=== PATIENT | female | born 1970 | race Caucasian/White ===

== ENCOUNTER 2017-02-04 15:09 | Inpatient (IN) | payer OTHER ==
[2017-02-04] MEDS ORDERED: INSULIN SLIDING SCALE (NOVOLOG) 1 VIAL SQ SCH ×2 (16:30)
[2017-02-04] MEDS ORDERED: TUBERCULIN PPD 5 TU/0.1ML SYRINGE (IN PATIENT USE ONLY) ID ONE (16:56)
[2017-02-04] MEDS ORDERED: PROMETHAZINE HCL 25 MG/1 ML VIAL IVPUSH ONE ×2 (17:39→21:18)
[2017-02-04] MEDS ORDERED: BUTORPHANOL TARTRATE 1 MG/ML VIAL IVPB ONE (17:39)
[2017-02-04] MEDS ORDERED: ELECTROLYTE-148 SOLN 1,000 ML IV SCH ×2 (17:45→22:00)
[2017-02-04 18:14] VITALS: BMI 32.9
[2017-02-04 18:37] LABS: BASOPHIL 0.6 % (0-2.0); EOSINOPHIL 0.6 % (0-4.5); MCHC 33.5 g/dl (32.0-36.0); MEAN CELL VOLUME 86.7 fl (80-96); MEAN PLT VOLUME 8.6 fl (7.5-11.1); NEUTROPHILS 70.6 % (42.8-82.8); PLATELET COUNT 188 K/MM3 (134-434); RDW 13.8 % (11.6-15.6); WHITE BLOOD COUNT 12.7 K/mm3 (4.0-10.0)
[2017-02-04 18:41] LABS: INR 1.04 (0.82-1.09); PROTHROMBIN TIME (PATIENT) 11.4 SEC (9.98-11.88)
[2017-02-04 18:44] LABS: ACTIVATED PTT 26.7 SECONDS (26.9-34.4)
[2017-02-04 19:07] LABS: CALCIUM 8.3 mg/dL (8.5-10.1); COCKROFT - GAULT 157.7005; CREATININE 0.6 mg/dL (0.55-1.02)
[2017-02-04] MEDS ORDERED: INSULIN DETEMIR 100 UNITS/ML MDV SQ ONE (20:59)
[2017-02-04] MEDS ORDERED: DINOPROSTONE 10 MG VAGINAL SUPPOSITORY VG ONE (21:00)
--- NOTE | 2017-02-04 21:10 | HP ---
Past Medical History - Primary Care Physician PCP:: Monserrat Bullock - Admission Chief Complaint: Induction due to preexisting DM at 38 weeks for induction, Hx of gestation DM with previous pregnancies. Pt admitted due to uncontrollable DM with elevated HgbA1C History of Present Illness: 46 yo G & [id number] EDC 02/17/17 EGA 38.1 weeks admitted due to preexisting DM at 38 weeks for induction History Source: Patient Limitations to Obtaining History: No Limitations - Past Medical History ...: 7 ...Para: 3 ...Term: 3 ...: 0 ...Spon : 1 ...Induced : 2 ...Multiple Gestation: 0 ...LMP: 05/15/16 ... Weeks Gestation by Dates: 38.1 ...EDC by Dates: 02/19/17 ...EDC by Sono: 02/17/17 - Past Surgical History Hx Myomectomy: No Hx Transabdominal Cerclage: No Additional Surgical History: deviated septum 2013. hemorrhoid 2006 - Smoking History Smoking history: Former smoker Have you smoked in the past 12 months: No - Alcohol/Substance Use Hx Alcohol Use: No History of Substance Use: reports: None - Social History Usual Living Arrangement: Yes: With Spouse History of Recent Travel: No Home Medications - Allergies Allergies/Adverse Reactions: Allergies Allergy/AdvReac Type Severity Reaction Status Date / Time No Known Allergies Allergy Verified 02/02/17 18:19 - Home Medications Home Medications: Ambulatory Orders Insulin (Levemir) [Levemir Flexpen -] 30 units SQ HS 12/16/16 Insulin Sliding Scale [Novolog Vial Sliding Scale -] 0 units SQ TIDAC 12/16/16 Vit Calc,Iron,Folic [ Vitamins] 1 each PO DAILY 12/16/16 Review of Systems - Review of Systems Constitutional: reports: No Symptoms Eyes: reports: No Symptoms HENT: reports: No Symptoms Neck: reports: No Symptoms Cardiovascular: reports: No Symptoms Respiratory: reports: No Symptoms Gastrointestinal: reports: No Symptoms Genitourinary: reports: No Symptoms Breasts: reports: No Symptoms Reported Musculoskeletal: reports: No Symptoms Integumentary: reports: No Symptoms Neurological: reports: No Symptoms Endocrine: reports: No Symptoms Hematology/Lymphatic: reports: No Symptoms Psychiatric: reports: No Symptoms Physical Exam - Maternity Vital Signs: Vital Signs Temperature 98.5 F 06/13/17 20:00 Pulse Rate 95 H 02/04/17 20:00 Respiratory Rate 20 02/04/17 20:00 Blood Pressure 115/56 02/04/17 20:00 O2 Sat by Pulse Oximetry (%) Constitutional: Yes: Well Nourished, No Distress Neck: Yes: WNL Cardiovascular: Yes: WNL, Regular Rate and Rhythm Lungs: Clear to auscultation Breast(s): Yes: WNL - Abdominal Exam/OB Fundal Height: 39 Number of Fetuses: Single Presentation: Vertex Contractions: No Monitor Mode: External Category: I Accelerations: Non-Uniform Decelerations: None - Vaginal Exam/OB Vaginal Bleediing: No Speculum Exam: No Dilatation (cm): 2-3 Effacement (%): 50 Amniotic Membrane Status: Intact Presentation: Vertex/Position Station: -2 (Cervidil placed) - Labs Lab Results: CBC, BMP 02/04/17 17:30 02/04/17 17:30 Hemorrhage Risk Assessment - Risk Factors Medium Risk Factors: Yes: EFW greater than 4000g Risk Score: 1 Risk Level: Medium Risk Problem List - Problems (1) Preexisting diabetes complicating in third trimester, antepartum Assessment/Plan: Gladys preexisting DM IUP at 38 weeks Code(s): O24.313 - UNSP PRE-EXISTING DIABETES IN , THIRD TRIMESTER (2) Elective induction of labor planned Code(s): ISX0376 - Assessment/Plan IUP at 38.1 week AMA Cat 1 week preexisting DM induction with cervidil Plan cervidil diabetes management
[2017-02-04] MEDS ORDERED: BUTORPHANOL TARTRATE 1 MG/ML VIAL IVPUSH ONE (21:19)
[2017-02-04] MEDS ORDERED: AMPICILLIN - 2 GM in SODIUM CHLORIDE 100 ML IVPB ONE (21:19)
[2017-02-05] MEDS ORDERED: CITRIC ACID/SODIUM CITRATE 30 ML UNIT-DOSE CUP PO ONE (00:10)
--- NOTE | 2017-02-05 00:11 | PN ---
Ante-Partal Exam - Subjective Subjective: Called to evaluate due to deep variable decels with cervidil. Cervidil removed No rom no bleeding Vital Signs: Vital Signs Temperature 98.3 F 02/04/17 22:00 Pulse Rate 75 02/04/17 22:00 Respiratory Rate 20 02/04/17 22:00 Blood Pressure 102/51 02/04/17 22:00 O2 Sat by Pulse Oximetry (%) Bleeding: No Headache: No Visual changes: No Right upper quadrant pain: No - Contractions Contractions: Yes Regularity: Irregular Intensity: Mild/Mod Monitor Mode: External - Exam during Labor Variability: Moderate Heart Rate Location: [facility] Category: II Monitor Decelerations: Variable (deep to 60s) Exam: Vaginal Presentation: Vertex Station: -2 - Intrapartum Hemorrhage Risk Risk Score: 1 Risk Level: Medium Risk - Assessment/Plan Assessment/Plan: intolerance to Labor Cat 2 Deep variables preexisting DM Plan Primary CS notify peds notify anesthesia
[2017-02-05] MEDS ORDERED: ONDANSETRON 4 MG/2 ML VIAL IVPUSH PRN (00:15)
[2017-02-05] MEDS ORDERED: IBUPROFEN 800 MG/8 ML IJ IVPB PRN (00:15)
[2017-02-05 01:01] LABS: ARTERIAL BLOOD GAS HCO3 26.1 meq/L (22-26)
[2017-02-05 01:03] LABS: ARTERIAL BLOOD GAS pH 7.21 (7.35-7.45)
[2017-02-05 01:04] LABS: ARTERIAL BLOOD GAS PO2 16.7 mmHg (80-100)
[2017-02-05 01:06] LABS: VENOUS PH 7.3 (7.32-7.42)
[2017-02-05] MEDS ORDERED: oxyCODONE HCL 5 MG TABLET PO PRN (01:10)
[2017-02-05] MEDS ORDERED: METHYLERGONOVINE MALEATE 0.2 MG/1 ML AMP IM PRN (01:10)
[2017-02-05] MEDS ORDERED: OXYTOCIN 20 UNITS in 0.9% NS 1,000 ML IV SCH (01:15)
[2017-02-05] MEDS ORDERED: D5W-LR W/ 20 UNITS OXYTOCIN 1,000 ML IV SCH (05:00)
[2017-02-05] MEDS: INSULIN SLIDING SCALE (NOVOLOG) 1 VIAL SQ SCH ×3 (07:32→17:43)
--- NOTE | 2017-02-05 10:20 | OP ---
Operative Note - Note: Operative Date: 02/05/17 Pre-Operative Diagnosis: Preexisiting Diabetes. Nonreassuring Tracing. Advanced maternal Age Operation: Primary Low Transverse Ceserean Section Findings: Live male Post-Operative Diagnosis: Same as Pre-op Surgeon: Monserrat Bullock Molder Pipe Covering: Baltazar Nelson Anesthesia: Spinal Estimated Blood Loss (mls): 600 Operative Report Dictated: Yes
[2017-02-05] MEDS: SIMETHICONE 80 MG TAB.CHEW (FP) PO PRN ×3 (10:47→22:08)
[2017-02-05] MEDS: ACETAMINOPHEN 325 MG TABLET (FP) PO PRN ×3 (10:47→22:10)
--- NOTE | 2017-02-05 13:52 | OP ---
DATE OF OPERATION: 02/05/2017 PREOPERATIVE DIAGNOSIS: Preexisting diabetes uncontrolled, intrauterine at 38 weeks, nonreassuring tracing,AMA POSTOPERATIVE DIAGNOSIS: Live male infant. OPERATION: Primary low transverse section. SURGEON: Monserrat Bullock MD ACCELERATOR SYSTEMS DIRECTOR: Baltazar Nelson MD ANESTHESIA: Spinal. ANESTHESIOLOGIST: Bull Villalobos MD DESCRIPTION OF PROCEDURE: The patient was taken to the operating room, placed in the dorsal lithotomy position, prepped and draped in the usual sterile fashion. A time-out was performed in accordance with hospital regulation. A Pfannenstiel skin incision was made with the scalpel. Cautery was then used to go through the layers of the abdominal wall to the level of the fascia. The fascia was cut in the midline and cautery was then used to open the fascia in a smiling fashion. Meg was then used to bluntly and sharply dissect the rectus muscle and fascia. The muscle was splint in the midline. The peritoneal cavity was then entered carried down. A bladder retractor was then placed. The vesicouterine reflection was then entered. A scalpel was then used to make a low transverse uterine incision. The incision was carried upward using bandage scissors. A live male infant was delivered in OT position. Nose and mouth suction was performed. The shoulders were delivered without difficulty. The cord was clamped and cut. Cord pH was obtained. Cord blood sampling was done. The infant was handed to the cell attendant helper. The placenta was manually extracted from the uterus. The uterus was exteriorized and cleaned with clean lap pads. The uterine incision was then closed using 0 Biosyn suture, the first layer continuous interlocking and the second layer imbricating the first layer. Hemostasis was achieved. The tube and ovaries were noted to be normal. The uterus was interiorized. Abdominal sweep done. The peritoneal cavity and abdominal cavity were cleaned with clean lap pads. The peritoneum was then closed using 0 Biosyn suture in a continuous stitch. The muscle was approximated in the midline using a [id number] 0 Vicryl suture. The fascia was then closed using 0 Vicryl suture in 2 parts. The subcutaneous was then approximated using 0 Biosyn. The skin was then closed using 3-0 Vicryl in subcuticular fashion. The wound was washed and dressed. Steri-Strips were placed. The patient tolerated the procedure well. Estimated blood loss was 600 mL. Shayne [id number] MTDD
[2017-02-05] MEDS: IBUPROFEN 600 MG TABLET (FP) PO PRN ×2 (16:26→22:08)
--- NOTE | 2017-02-05 18:17 | CONSULT ---
Consult Consult Specialty:: Endocrinology Referred by:: Dr Bullock Reason for Consultation:: management of DM - History of Present Illness Chief Complaint: Fluctuating blood sugar History of Present Illness: This is a 46 y/o f with h/o DM, s/p c section who is referred for management of blood sugar. Pt has had fluctuating blood sugar during the . Pt has been non compliant with treatment and follow up. Last seen in the office on 01/03 when her blood sugars were fluctuating between 120 to 180. Didn't come for f /u after that. Says she was busy with work and that her blood sugars were good at home. Pt currently in chair eating dinner. Denies any complaints.Chart reviewed. - History Source History Provided By: Patient, Medical Record Limitations to Obtaining History: No Limitations - Past Medical History Endocrine: Yes: Diabetes Mellitus - Past Surgical History Additional Surgical History: deviated septum 2013. hemorrhoid 2006 - Alcohol/Substance Use Hx Alcohol Use: No History of Substance Use: reports: None - Smoking History Smoking history: Former smoker Have you smoked in the past 12 months: No - Social History History of Recent Travel: No Home Medications - Allergies Allergies/Adverse Reactions: Allergies Allergy/AdvReac Type Severity Reaction Status Date / Time No Known Allergies Allergy Verified 02/02/17 18:19 - Home Medications Home Medications: Ambulatory Orders Insulin (Levemir) [Levemir Flexpen -] 30 units SQ HS 12/16/16 Insulin Sliding Scale [Novolog Vial Sliding Scale -] 0 units SQ TIDAC 12/16/16 Vit Calc,Iron,Folic [ Vitamins] 1 each PO DAILY 12/16/16 Family Disease History - Family Disease History Family Disease History: Diabetes: Father Review of Systems - Review of Systems Constitutional: reports: No Symptoms Eyes: reports: No Symptoms HENT: reports: No Symptoms Neck: reports: No Symptoms Cardiovascular: reports: No Symptoms Respiratory: reports: No Symptoms Gastrointestinal: reports: Other ("sore" at surgical site) Genitourinary: reports: No Symptoms Musculoskeletal: reports: No Symptoms Neurological: reports: No Symptoms Endocrine: reports: No Symptoms Physical Exam Vital Signs: Vital Signs Temperature 98.6 F 02/05/17 17:00 Pulse Rate 79 02/05/17 17:00 Respiratory Rate 20 02/05/17 18:00 Blood Pressure 120/73 02/05/17 17:00 O2 Sat by Pulse Oximetry (%) 100 02/05/17 02:20 Constitutional: Yes: No Distress, Calm Eyes: Yes: Conjunctiva Clear, EOM Intact HENT: Yes: Atraumatic, Normocephalic Neck: Yes: Supple, Trachea Midline Cardiovascular: Yes: Regular Rate and Rhythm Respiratory: Yes: Regular, CTA Bilaterally Gastrointestinal: Yes: Normal Bowel Sounds, Soft Musculoskeletal: Yes: WNL Extremities: Yes: WNL Edema: No Labs: CBC, BMP 02/04/17 17:30 02/04/17 17:30 Assessment/Plan AP; S/P C section DM: BGM Q ACHS Novolog SS coverage 1800 KCal ADA diet Will f/u
[2017-02-06] MEDS ORDERED: BISACODYL 10 MG SUPP.RECT RC PRN (01:10)
[2017-02-06] MEDS: SIMETHICONE 80 MG TAB.CHEW (FP) PO PRN ×3 (06:29→21:01)
[2017-02-06] MEDS: oxyCODONE HCL 5 MG TABLET PO PRN ×3 (06:31→21:01)
[2017-02-06] MEDS: IBUPROFEN 600 MG TABLET (FP) PO PRN ×2 (06:32→13:38)
[2017-02-06] MEDS: INSULIN SLIDING SCALE (NOVOLOG) 1 VIAL SQ SCH ×3 (06:35→16:49)
[2017-02-06 08:28] LABS: BASOPHIL 0.5 % (0-2.0); EOSINOPHIL 0.9 % (0-4.5); MCH 29.8 pg (25.7-33.7); MEAN CELL VOLUME 87.8 fl (80-96); MEAN PLT VOLUME 8.4 fl (7.5-11.1); NEUTROPHILS 75.5 % (42.8-82.8); PLATELET COUNT 157 K/MM3 (134-434); RDW 14.2 % (11.6-15.6); WHITE BLOOD COUNT 12.9 K/mm3 (4.0-10.0)
--- NOTE | 2017-02-06 09:03 | PN ---
Progress Note (short form) - Note Progress Note: C/o pain at surgical site BGM stable No hypos Vital Signs Period Temp Pulse Resp BP Sys/Givens Pulse Ox Last 24 Hr 98.6 F-99.4 F 68-79 18-20 117-127/72-87 PE: AOx3 Neck: Supple, No JVd HEENT: PERRL, EOMI Lungs: CTA CVS: S1S2 Abd: Benign EXt: No edema Neuro: No focal deficit CMP Sodium 138 mmol/L (136-145) 02/04/17 17:30 Potassium 4.1 mmol/L (3.5-5.1) 02/04/17 17:30 Chloride 105 mmol/L (98-107) 02/04/17 17:30 Carbon Dioxide 20 mmol/L (21-32) L 02/04/17 17:30 Anion Gap 13 (8-16) 02/04/17 17:30 BUN 8 mg/dL (7-18) 02/04/17 17:30 Creatinine 0.6 mg/dL (0.55-1.02) 02/04/17 17:30 POC Glucometer 87 UNITS (()) 02/06/17 06:22 Random Glucose 139 mg/dL (74-106) H 02/04/17 17:30 Calcium 8.3 mg/dL (8.5-10.1) L 02/04/17 17:30 Current Medications Generic Name Dose Route Start Last Admin Trade Name Freq PRN Reason Stop Dose Admin Acetaminophen 650 mg 02/05/17 01:10 02/05/17 22:10 Tylenol - PO 650 mg Q4H PRN Administration FEVER OR PAIN Bisacodyl 10 mg 02/06/17 01:10 Dulcolax Suppository - RC PRN PRN CONSTIPATION Diphenhydramine HCl 25 mg 02/05/17 00:15 Benadryl Injection - IVPUSH Q4H PRN itching Ibuprofen 600 mg 02/05/17 01:10 02/06/17 06:32 Motrin - PO 600 mg Q4H PRN Administration PAIN Insulin Aspart 1 vial 02/04/17 20:09 02/06/17 06:35 Novolog Vial Sliding Scale - SQ Not Given TIDAC AURE Protocol Methylergonovine Maleate 0.2 mg 02/05/17 01:10 Methergine Injection - IM Q4H PRN Excessive Bleeding (L&D) Oxycodone HCl 5 mg 02/05/17 01:10 02/06/17 06:31 Roxicodone - PO 5 mg Q4H PRN Administration PAIN LEVEL 1-5 Oxycodone HCl 10 mg 02/05/17 01:10 Roxicodone - PO Q4H PRN PAIN LEVEL 6-10 Multivit/Folic Acid/Iron 1 tab 02/07/17 10:00 Vitamins (Sjr) - PO DAILY AURE Simethicone 80 mg 02/05/17 01:10 02/06/17 06:29 Mylicon - PO 80 mg Q4H PRN Administration GAS AP; DM S/P C section Diet discussed again: No sugary drinks including fruit juices and soda BGM TID AC Novolog SS coverage May be able to stay off antidiabetic meds with diet and exercise. Will f/u
[2017-02-06] MEDS: PRENATAL VITAMINS W/ FOLIC ACID TABLET (FP) PO SCH (09:30)
--- NOTE | 2017-02-06 09:33 | PN ---
Post Progress Note - Subjective Subjective: Pt with some incisional pain otherwise feeling well. Ambulating, voiding, tolerating diet. VB minimal. BGs stable - endocrine following. Type of Delivery: Primary C/S Vital Signs: Vital Signs Temperature 98.6 F 02/05/17 22:00 Pulse Rate 69 02/05/17 22:00 Respiratory Rate 18 02/05/17 22:00 Blood Pressure 124/72 02/05/17 22:00 O2 Sat by Pulse Oximetry (%) 100 02/05/17 02:20 Uterus: Yes: Fundus Firm, Fundus below umbilicus Incision: Yes: Sutures intact Abdomen/GI: Yes: Abdomen soft, Tender, Tolerating PO. No: Abdominal Distention Lochia: Yes: Rubra Lochia, amount: Small Extremities: Yes: Calves non-tender. No: Edema Perineum: Yes: Intact Activity: Ambulating - Labs Labs: CBC WBC 12.9 K/mm3 (4.0-10.0) H 02/06/17 07:45 RBC 3.75 M/mm3 (3.60-5.2) 02/06/17 07:45 Hgb 11.2 GM/dL (10.7-15.3) 02/06/17 07:45 Hct 32.9 % (32.4-45.2) 02/06/17 07:45 MCV 87.8 fl (80-96) 02/06/17 07:45 MCHC 34.0 g/dl (32.0-36.0) 02/06/17 07:45 RDW 14.2 % (11.6-15.6) 02/06/17 07:45 Plt Count 157 K/MM3 (134-434) 02/06/17 07:45 MPV 8.4 fl (7.5-11.1) 02/06/17 07:45 Neutrophils % 75.5 % (42.8-82.8) 02/06/17 07:45 Lymphocytes % 15.1 % (8-40) D 02/06/17 07:45 Monocytes % 8.0 % (3.8-10.2) 02/06/17 07:45 Eosinophils % 0.9 % (0-4.5) 02/06/17 07:45 Basophils % 0.5 % (0-2.0) 02/06/17 07:45 Assessment/Plan 46 y/o POD#1 s/p primary delivery, also wtih DM - AFVSS - DM - BGs stable with novolog SSI, appreciate endorine input, continue diabetic diet - PO pain meds - ambulation - routine care
[2017-02-06] MEDS: SENNOSIDES 8.6MG TABLET (FP) PO SCH ×2 (09:44→21:01)
--- NOTE | 2017-02-06 10:05 | PN ---
Progress Note (short form) - Note Progress Note: Post op day#1.S/P C section under spinal anesthesia with duramorph uneventful.Patient stable and c/o some pain for which she is on PO medication.No any anesthesia related problem.Patient DC from the anesthesia care.
[2017-02-06] MEDS: ACETAMINOPHEN 325 MG TABLET (FP) PO PRN (21:02)
[2017-02-07] MEDS: IBUPROFEN 600 MG TABLET (FP) PO PRN ×2 (00:17→11:11)
[2017-02-07] MEDS: oxyCODONE HCL 5 MG TABLET PO PRN (06:47)
[2017-02-07] MEDS: SIMETHICONE 80 MG TAB.CHEW (FP) PO PRN ×2 (06:47→15:40)
[2017-02-07] MEDS: ACETAMINOPHEN 325 MG TABLET (FP) PO PRN (06:47)
[2017-02-07] MEDS: INSULIN SLIDING SCALE (NOVOLOG) 1 VIAL SQ SCH ×3 (07:41→16:24)
[2017-02-07] MEDS: SENNOSIDES 8.6MG TABLET (FP) PO SCH ×2 (09:33→22:11)
[2017-02-07] MEDS: PRENATAL VITAMINS W/ FOLIC ACID TABLET (FP) PO SCH (09:34)
[2017-02-07] MEDS ORDERED: PRENATAL VITAMINS W/ FOLIC ACID TABLET (FP) PO SCH (10:00)
--- NOTE | 2017-02-07 10:01 | PN ---
Post Progress Note - Subjective Subjective: Pt doing well post . Pain control better today, ambulating, voiding, tolerating diabetic diet. BGs overall well controlled. Lochia minimal. No other issues/concerns. Denies GALVAN/RUQ pain/F/C/N/V/CP/SOB. Type of Delivery: Primary C/S Vital Signs: Vital Signs Temperature 98.1 F 02/07/17 08:15 Pulse Rate 69 02/07/17 08:15 Respiratory Rate 20 02/07/17 08:15 Blood Pressure 126/82 02/07/17 08:15 O2 Sat by Pulse Oximetry (%) 100 02/05/17 02:20 Uterus: Yes: Fundus Firm Incision: Yes: Sutures intact Abdomen/GI: Yes: Abdomen soft, Tender (appropriate post surgical tenderness). No: Abdominal Distention, Passing flatus Lochia, amount: Small Extremities: Yes: Calves non-tender. No: Edema Perineum: Yes: Intact Activity: Ambulating - Labs Labs: CBC WBC 12.9 K/mm3 (4.0-10.0) H 02/06/17 07:45 RBC 3.75 M/mm3 (3.60-5.2) 02/06/17 07:45 Hgb 11.2 GM/dL (10.7-15.3) 02/06/17 07:45 Hct 32.9 % (32.4-45.2) 02/06/17 07:45 MCV 87.8 fl (80-96) 02/06/17 07:45 MCHC 34.0 g/dl (32.0-36.0) 02/06/17 07:45 RDW 14.2 % (11.6-15.6) 02/06/17 07:45 Plt Count 157 K/MM3 (134-434) 02/06/17 07:45 MPV 8.4 fl (7.5-11.1) 02/06/17 07:45 Neutrophils % 75.5 % (42.8-82.8) 02/06/17 07:45 Lymphocytes % 15.1 % (8-40) D 02/06/17 07:45 Monocytes % 8.0 % (3.8-10.2) 02/06/17 07:45 Eosinophils % 0.9 % (0-4.5) 02/06/17 07:45 Basophils % 0.5 % (0-2.0) 02/06/17 07:45 Assessment/Plan 46 y/o POD#1 s/p primary delivery, also with DM - AFVSS - DM - BGs stable with novolog SSI, appreciate endorine input, continue diabetic diet and follow with endocrine upon discharge - PO pain meds - ambulation - routine care - if mom/baby stable, for discharge on 02/08 or 02/09
--- NOTE | 2017-02-07 14:36 | PATH ---
Surgical Pathology Report Patient Name: EMILY GREENE [facility]. Rec. #: [id number] /Age/Gender: 1970 (Age: 46) / F Account: [id number] Location: [facility] OBS/BUDGET REPORT CLERK Taken: 02/05/2017 Received: 02/05/2017 Reported: 02/07/2017 Physicians: Monserrat Bullock M.D. Specimen(s) Received PLACENTA Clinical History History of one spontaneous , 2 induced abortions, insulin-dependent diabetes Final Diagnosis PLACENTA, DELIVERY: FOCALLY DISRUPTED THIRD TRIMESTER PLACENTA WITH THREE VESSEL UMBILICAL CORD AND MECONIUM HISTIOCYTOSIS OF PLACENTAL MEMBRANES. Electronically Signed Anurag Santoyo M.D. Gross Description The specimen is received fresh labeled placenta and is a 460 gram, 17.0 x 14.0 x 3.0 cm. placenta with attached membranes and umbilical cord. The attached membranes are torres green, meconium stained, translucent with focal opacities and insert marginally. The umbilical cord measures 17 cm. in length and averages 1 cm. in diameter. The cord inserts eccentrically, 4 cm. to the nearest margin. No true knots or strictures are identified. Cut surface of the umbilical cord reveals 3 vessels. The surface is auguste green, meconium stained with minimal fibrin deposition and appropriate caliber vessels. The maternal surface is red-brown with focal defects. Sectioning reveals red-brown, spongy parenchyma. No lesions are identified. Debarker Operator sections are submitted in three cassettes as follows: 1- membrane rolls and umbilical cord; 2-3- full thickness sections of placenta. 02/06/[address] [facility]02/06/2017
[2017-02-07] MEDS: HYDROmorphone HCL 2 MG TABLET PO PRN ×2 (15:40→22:11)
[2017-02-08] MEDS: HYDROmorphone HCL 2 MG TABLET PO PRN (04:01)
[2017-02-08] MEDS: SIMETHICONE 80 MG TAB.CHEW (FP) PO PRN ×3 (04:02→21:46)
[2017-02-08] MEDS: IBUPROFEN 600 MG TABLET (FP) PO PRN ×3 (04:02→21:46)
[2017-02-08] MEDS: INSULIN SLIDING SCALE (NOVOLOG) 1 VIAL SQ SCH ×3 (06:31→16:32)
--- NOTE | 2017-02-08 07:45 | PN ---
Post Progress Note - Subjective Subjective: 46 yo Para 4 status post primary , seen and evaluated. She c/o incision pain. Type of Delivery: Primary C/S Vital Signs: Vital Signs Temperature 98.6 F 02/07/17 22:00 Pulse Rate 73 02/07/17 22:00 Respiratory Rate 20 02/07/17 22:00 Blood Pressure 132/73 02/07/17 22:00 O2 Sat by Pulse Oximetry (%) 100 02/05/17 02:20 Breast Exam: Yes: Soft Uterus: Yes: Fundus Firm Incision: Yes: Dressing dry and intact Abdomen/GI: Yes: Abdomen soft, Tolerating PO Lochia: Yes: Rubra Lochia, amount: Small Extremities: Yes: Calves non-tender Perineum: Yes: Intact Activity: Ambulating - Labs Labs: CBC WBC 12.9 K/mm3 (4.0-10.0) H 02/06/17 07:45 RBC 3.75 M/mm3 (3.60-5.2) 02/06/17 07:45 Hgb 11.2 GM/dL (10.7-15.3) 02/06/17 07:45 Hct 32.9 % (32.4-45.2) 02/06/17 07:45 MCV 87.8 fl (80-96) 02/06/17 07:45 MCHC 34.0 g/dl (32.0-36.0) 02/06/17 07:45 RDW 14.2 % (11.6-15.6) 02/06/17 07:45 Plt Count 157 K/MM3 (134-434) 02/06/17 07:45 MPV 8.4 fl (7.5-11.1) 02/06/17 07:45 Neutrophils % 75.5 % (42.8-82.8) 02/06/17 07:45 Lymphocytes % 15.1 % (8-40) D 02/06/17 07:45 Monocytes % 8.0 % (3.8-10.2) 02/06/17 07:45 Eosinophils % 0.9 % (0-4.5) 02/06/17 07:45 Basophils % 0.5 % (0-2.0) 02/06/17 07:45 Assessment/Plan Status post primary Stable Ambulation Analgesia PRN pain Continue routine Post op care
[2017-02-08 08:32] LABS: BASOPHIL 0.5 % (0-2.0); EOSINOPHIL 1.8 % (0-4.5); MCH 30.3 pg (25.7-33.7); MCHC 34.5 g/dl (32.0-36.0); MEAN CELL VOLUME 87.9 fl (80-96); MEAN PLT VOLUME 8.6 fl (7.5-11.1); NEUTROPHILS 70.3 % (42.8-82.8); PLATELET COUNT 190 K/MM3 (134-434); WHITE BLOOD COUNT 10.9 K/mm3 (4.0-10.0)
[2017-02-08] MEDS ORDERED: HYDROmorphone HCL 2 MG TABLET ONE ×2 (10:00→21:44)
[2017-02-08] MEDS: PRENATAL VITAMINS W/ FOLIC ACID TABLET (FP) PO SCH (10:03)
[2017-02-08] MEDS: SENNOSIDES 8.6MG TABLET (FP) PO SCH ×2 (10:04→21:46)
--- NOTE | 2017-02-08 12:15 | PN ---
Progress Note (short form) - Note Progress Note: C/o pain at surgical site BGM fluctuating No hypos Vital Signs Period Temp Pulse Resp BP Sys/Givens Pulse Ox Last 24 Hr 97.7 F-98.6 F 73-73 20-20 124-132/67-73 PE: AOx3 Neck: Supple, No JVd HEENT: PERRL, EOMI Lungs: CTA CVS: S1S2 Abd: Benign EXt: + edema Neuro: No focal deficit CMP Sodium 138 mmol/L (136-145) 02/04/17 17:30 Potassium 4.1 mmol/L (3.5-5.1) 02/04/17 17:30 Chloride 105 mmol/L (98-107) 02/04/17 17:30 Carbon Dioxide 20 mmol/L (21-32) L 02/04/17 17:30 Anion Gap 13 (8-16) 02/04/17 17:30 BUN 8 mg/dL (7-18) 02/04/17 17:30 Creatinine 0.6 mg/dL (0.55-1.02) 02/04/17 17:30 Random Glucose 139 mg/dL (74-106) H 02/04/17 17:30 POC Glucometer 173 UNITS (()) 02/08/17 10:57 Hemoglobin A1c % 8.0 % (4.8-6.0) H 02/06/17 07:45 Calcium 8.3 mg/dL (8.5-10.1) L 02/04/17 17:30 Current Medications Generic Name Dose Route Start Last Admin Trade Name Freq PRN Reason Stop Dose Admin Acetaminophen 650 mg 02/05/17 01:10 02/07/17 06:47 Tylenol - PO 650 mg Q4H PRN Administration FEVER OR PAIN Bisacodyl 10 mg 02/06/17 01:10 Dulcolax Suppository - RC PRN PRN CONSTIPATION Diphenhydramine HCl 25 mg 02/05/17 00:15 Benadryl Injection - IVPUSH Q4H PRN itching Hydromorphone HCl 2 mg 02/07/17 12:20 02/08/17 04:01 Dilaudid - PO 2 mg Q4H PRN Administration PAIN Hydromorphone HCl 4 mg 02/07/17 12:20 02/08/17 10:04 Dilaudid - PO 4 mg Q4H PRN Administration PAIN LEVEL 6-10 Ibuprofen 600 mg 02/05/17 01:10 02/08/17 10:04 Motrin - PO 600 mg Q4H PRN Administration PAIN Insulin Aspart 1 vial 02/07/17 09:58 02/08/17 11:55 Novolog Vial Sliding Scale - SQ 2 units TIDAC AURE Administration Protocol Methylergonovine Maleate 0.2 mg 02/05/17 01:10 Methergine Injection - IM Q4H PRN Excessive Bleeding (L&D) Multivit/Folic Acid/Iron 1 tab 02/06/17 10:00 02/08/17 10:03 Vitamins (Sjr) - PO 1 tab DAILY AURE Administration Senna 1 tab 02/06/17 10:00 02/08/17 10:04 Senna - PO 1 tab BID AURE Administration Simethicone 80 mg 02/05/17 01:10 02/08/17 10:04 Mylicon - PO 80 mg Q4H PRN Administration GAS AP; DM: A1c 8.0 S/P C section Diet discussed again: Discussed need to stop taking sugary drinks including fruit juices and soda. BGM TID AC Novolog SS coverage May be able to stay off antidiabetic meds with diet and exercise if she is compliant with it. Will f/u
[2017-02-09] MEDS: INSULIN SLIDING SCALE (NOVOLOG) 1 VIAL SQ SCH ×2 (06:29→11:27)
[2017-02-09 08:17] VITALS: BP 114/68; PULSE 67; TEMP 97.2
[2017-02-09] MEDS: PRENATAL VITAMINS W/ FOLIC ACID TABLET (FP) PO SCH ×2 (08:46→09:49)
[2017-02-09] MEDS: SIMETHICONE 80 MG TAB.CHEW (FP) PO PRN (08:47)
[2017-02-09] MEDS: ACETAMINOPHEN 325 MG TABLET (FP) PO PRN (08:47)
[2017-02-09] MEDS: IBUPROFEN 600 MG TABLET (FP) PO PRN (08:47)
[2017-02-09] MEDS: SENNOSIDES 8.6MG TABLET (FP) PO SCH ×2 (08:47→09:49)
--- NOTE | 2017-02-12 03:06 | DS ---
Physical Exam-BRANCH EMPLOYMENT COORDINATOR Vital Signs: Vital Signs Temperature 97.2 F L 02/09/17 08:16 Pulse Rate 67 02/09/17 08:16 Respiratory Rate 18 02/09/17 08:16 Blood Pressure 114/68 02/09/17 08:16 O2 Sat by Pulse Oximetry (%) 100 02/05/17 02:20 Constitutional: Yes: Well Nourished, No Distress Neck: Yes: WNL Cardiovascular: Yes: WNL Respiratory: Yes: WNL, Regular, CTA Bilaterally Gastrointestinal: Yes: WNL, Soft Pelvis: Yes: WNL ....Post : Yes: Uterus firm, Uterus non-tender Wound/Incision: Yes: Clean/Dry, Well Approximated, Steri Strips, Open to air Neurological: Yes: WNL, Alert, Oriented Labs: CBC, BMP 02/08/17 07:20 02/04/17 17:30 Delivery - Delivery Section: Low Flap Transverse Type of Anesthesia: Spinal Episiotomy/Laceration: None EBL (cc): 600 Delivery, Single - Stages of Labor Date 1st Stage Initiatied: 02/04/17 Time 1st Stage Initiated: 22:30 Date of Delivery: 02/05/17 Time of Delivery: 00:36 Time Placenta Delivered: 00:37 - Condition of Dry Chain Operator/Customer Program Manager Present: Yes Name: Clement Soriano Infant Gender: Male Weight: 9 lb 2 oz Position: OP Total Hours ROM (Hrs/Mins): 1min - 1 Minute Total Score: 9 5 Minutes Total Score: 9 - [place] Feeding Plan Initial Plan: Elected not to breastfeed exclusively throughout hospitalization Discharge Summary Reason For Visit: Failed induction/ Diabetes macrosomia preexisting diabetes Procedures: Principal: Primary low transverse Section Hospital Course: unremarkable Condition: Good - Instructions Diet, Activity, Other Instructions: Wound care No lifting, no driving x 4 weeks F/U with MD in one week Referrals: Monserrat Bullock MD [Staff Physician] - George Cohen MD [Staff Physician] - Disposition: HOME - Home Medications Comprehensive Discharge Medication List: Ambulatory Orders Insulin (Levemir) [Levemir Flexpen -] 30 units SQ HS 12/16/16 Insulin Sliding Scale [Novolog Vial Sliding Scale -] 0 units SQ TIDAC 12/16/16 Vit Calc,Iron,Folic [ Vitamins] 1 each PO DAILY 12/16/16 Ibuprofen [Motrin -] 600 mg PO QID PRN #28 tablet 02/09/17 Oxycodone HCl/Acetaminophen [Percocet 5-325 mg Tablet -] 1 tab PO Q4H #20 tablet MDD 6 02/09/17
== END 2017-02-09 12:30 | disposition home or self-care (01) | DRG 540 ==
LOC: JDEL 15:09 → JLDR 16:35 → J3W 02-05 03:40
PROVIDERS: ADMIT Obstetrics & Gynecology; ATTEND Obstetrics & Gynecology
PROC: 10D00Z1 Extraction of Products of Conception, Low, Open Approach (ICD-10-PCS; principal; 2017-02-05)
DX: O76 Abnormality in fetal heart rate and rhythm complicating labor and delivery (principal); O24.32 Unspecified pre-existing diabetes mellitus in childbirth; E11.9 Type 2 diabetes mellitus without complications; O09.523 Supervision of elderly multigravida, third trimester; Z3A.38 38 weeks gestation of pregnancy; O61.0 Failed medical induction of labor; O36.63X0 Maternal care for excessive fetal growth, third trimester, not applicable or unspecified; Z37.0 Single live birth
CPT/HCPCS: 36415; 36600; 59025; 80048; 81003; 82803; 82977; 83010; 83036; 84450; 84460; 84550; 85025; 85044; 85610; 85730; 86593; 86850; 86900; 86901; 88307-TC